=== PATIENT | female | born 2000 | race Caucasian/White ===

== ENCOUNTER 2021-07-20 15:24 | Emergency (ER) | payer SELFPAY ==
[~2021-07-20] VITALS: Ht 170.2 cm; Wt 113.6 kg
[2021-07-20] MEDS ORDERED: ZYRTEC10 M3 PO (16:00)
[2021-07-20 16:01] VITALS: BP 102/55
== END 2021-07-20 17:15 | disposition left against medical advice (07) ==
LOC: ED 15:24
DX: R69 Illness, unspecified (principal)